=== PATIENT | male | born 1985 | race Caucasian/White ===

== ENCOUNTER 2021-07-31 17:44 | Emergency (ER) | payer MEDICAID ==
--- NOTE | 2021-07-31 19:17 | EDM.PDOC ---
ED HPI GENERAL MEDICAL PROBLEM - General Chief Complaint: Lower Extremity Injury/Pain Stated Complaint: PIECE OF IRON FELL ON LEFT KNEE AND LEG Time Seen by Provider: 07/31/21 18:55 Source of Information: Reports: Patient History Limitations: Reports: No Limitations - History of Present Illness INITIAL COMMENTS - FREE TEXT/NARRATIVE: HISTORY AND PHYSICAL: History of present illness: Patient is a 36-year-old male who presents to the emergency room with complaints of left medial knee pain. He reports while at work a piece of heavy metal had fallen onto his leg resulting in soft tissue swelling and pain with light touch. He is able to bear weight and bend although this does cause increased pain. He denies any other extremity involvement. Did not hit his head or have any loss of consciousness. Patient denies any fever, chills, headache, change in vision, syncope or near syncope. Denies any chest pain, back pain, shortness of breath or cough. Denies any GI or symptoms. Patient has been eating and drinking appropriately. No recent travel or sick contacts. Review of systems: As per history of present illness and below otherwise all systems reviewed and negative. Past medical history: As per history of present illness and as reviewed below otherwise noncontributory. Surgical history: As per history of present illness and as reviewed below otherwise nonc ontributory. Social history: See social history for further information Family history: As per history of present illness and as reviewed below otherwise noncontributory. Physical exam: General: Well developed and well nourished 36 year old male. Alert and orientated x 3. Nontoxic in appearance and in no acute distress. Vital signs are stable and have been reviewed by me. Nursing notes were reviewed. HEENT: Atraumatic, no cervical spine tenderness, normocephalic, pupils equal and reactive bilaterally, negative for conjunctival pallor or scleral icterus, mucous membranes moist, trachea midline. No drooling or trismus noted. No meningeal signs. No hot potato voice noted. Lungs: Clear to auscultation bilaterally. No wheezes, rales, or rhonchi. Chest nontender. Normal work of breathing, no accessory muscles used. Heart: S1S2, regular rate and rhythm without overt murmur, gallops, or rubs. No JVD. No peripheral edema Abdomen: Soft, nondistended, nontender. Skin: Superficial abrasion, soft tissue swelling and redness noted to left medial knee/distal thigh. Remaining skin is intact, warm, dry. No lesions or rashes noted. Hematologic: No petechiae or purpra. Mucosa appropriate color and normal nail bed color and refill. Extremities: Ambulatory with even and steady gait. Pain with palpation of left medial knee with soft tissue swelling (See SKIN). He moves all extremities per self without difficulty or deficits, strong pedal pulses with cap refill less than 2 seconds. Denies numbness or tingling lower extremities. He is negative for cords or calf pain. Neurovascular unremarkable. Neuro: Awake, alert, oriented. Cranial nerves II through XII unremarkable. Cerebellum unremarkable. Motor and sensory unremarkable throughout. Exam nonfocal. Psychiatric: Mood and affect are appropriate. Normal thought process. Answering questions appropriately. Please note that the patient was seen and evaluated during the 2019 SARS-CoV-2 novel coronavirus pandemic period. Community viral transmission is ongoing at time of this encounter and the emergency department is operating under pandemic response procedures. Medical Decision Making: Patient is a 36 year old male who presents to the ED with c/o crush injury of the left knee. He states a piece of heavy metal had fallen onto his knee resulting in pain, soft tissue swelling and superficial abrasion. He does have full range of motion and is able to weight-bear although he is very tender to the medial left knee. We did discuss the limitations of the emergency room and at this time we can do an x-ray, he does express concern of possible ligament injury. X-ray shows anterior soft tissue swelling. Normal alignment. No acute fractures are seen. No large effusion. Junior wrap for compression and crutches were provided with education. I have talked with the patient about today's findings, in addition to providing specific details for plan of care. Reassessment at the time of disposition demonstrates that the patient is in no acute distress. The patient is stable for discharge, counseling was provided and we discussed in great detail signs and symptoms that would prompt them to return to the Emergency Department. Medication, follow up and supportive care measures were reviewed and discussed. Voices understanding and is agreeable to plan of care. Denies any further questions or concerns at this time. Diagnostics: Knee x-ray Therapeutics: Junior wrap and crutches Prescription: Tramadol Impression: Crush injury, left knee Plan: 1. You were evaluated today on an emergent basis. Your x-ray doesn't show any signs of fracture. You could still have a ligament injury. Rest, ice and elevate as able. If you still have significant pain without any improvement, I would like you to follow up with primary care or orthopedics for possible MRI. Until then, use the junior wrap and crutches to be nonweightbearing. 2. You can alternate Tylenol and ibuprofen as needed for pain and fever management. 3. If your symptoms should worsen, new symptoms develop or any of the signs and symptoms we discussed should arise please return to the emergency room or call 911 (if needed). Definitive disposition and diagnosis as appropriate pending reevaluation and review of above. left leg Pain Score (Numeric/FACES): 8 - Related Data Allergies Allergy/AdvReac Type Severity Reaction Status Date / Time No Known Allergies Allergy Verified 07/31/21 18:38 Home Meds: Home Meds . [No Known Home Meds] 07/31/21 [History] Past Medical History - Past Health History Medical/Surgical History: Denies Medical/Surgical History Musculoskeletal History: Reports: Fracture Other Musculoskeletal History: broken ribs, collar bone, foot - Infectious Disease History Infectious Disease History: Reports: Chicken Pox, Influenza Social & Family History - Tobacco Use Tobacco Use Status *Q: Current Every Day Tobacco User Years of Tobacco use: 21 Packs/Tins Daily: 1 - Caffeine Use Caffeine Use: Reports: Coffee, Tea - Alcohol Use Days Per Week of Alcohol Use: 2 Number of Drinks Per Day: 5 Total Drinks Per Week: 10 - Recreational Drug Use Recreational Drug Use: No Review of Systems - Review of Systems Review Of Systems: Comprehensive ROS is negative, except as noted in HPI. ED EXAM, GENERAL - Physical Exam Exam: See Below (See dictation) Course - Vital Signs Last Recorded V/S: Last Vital Signs Temp 97 F 07/31/21 18:33 Pulse 99 07/31/21 18:33 Resp 16 07/31/21 18:33 BP 122/71 07/31/21 18:33 Pulse Ox 99 07/31/21 18:33 Departure - Departure Time of Disposition: 20:07 Disposition: Home, Self-Care 01 Clinical Impression: Crushing injury leg Qualifiers: Encounter type: initial encounter Laterality: left Qualified Code(s): S87.82XA - Crushing injury of left lower leg, initial encounter - Discharge Information Referrals: PCP,None [Primary Care Provider] - Forms: ED Department Discharge Additional Instructions: The following information is given to patients seen in the emergency department who are being discharged to home. This information is to outline your options for follow-up care. We provide all patients seen in our emergency department with a follow-up referral. The need for follow-up, as well as the timing and circumstances, are variable depending upon the specifics of your emergency department visit. If you don't have a primary care physician on staff, we will provide you with a referral. We always advise you to contact your personal physician following an emergency department visit to inform them of the circumstance of the visit and for follow-up with them and/or the need for any referrals to a consulting specialist. The emergency department will also refer you to a specialist when appropriate. This referral assures that you have the opportunity for follow-up care with a specialist. All of these measure are taken in an effort to provide you with optimal care, which includes your follow-up. Under all circumstances we always encourage you to contact your private physician who remains a resource for coordinating your care. When calling for follow-up care, please make the office aware that this follow-up is from your recent emergency room visit. If for any reason you are refused follow-up, please contact the [facility] Emergency Department at and asked to speak to the emergency department charge nurse. [facility] [address] [place] [id number] [facility] [address] [place] [id number] Thank you for choosing the [facility] emergency department in [place] for your medical needs today. It was a pleasure caring for you. Today you were seen in the emergency department for crush injury. 1. You were evaluated today on an emergent basis. Your x-ray doesn't show any signs of fracture. You could still have a ligament injury. Rest, ice and elevate as able. If you still have significant pain without any improvement, I would like you to follow up with primary care or orthopedics for possible MRI. Until then, use the junior wrap and crutches to be nonweightbearing. 2. You can alternate Tylenol and ibuprofen as needed for pain and fever management. 3. If your symptoms should worsen, new symptoms develop or any of the signs and symptoms we discussed should arise please return to the emergency room or call 911 (if needed). Sepsis Event Note (ED) - Evaluation Sepsis Screening Result: No Definite Risk - Focused Exam Vital Signs: Vital Signs Temp Pulse Resp BP Pulse Ox 07/31/21 18:33 97 F 99 16 122/71 99
--- NOTE | 2021-07-31 20:05 | CR ---
Indication: Pain Technique: Four-views the left knee Comparison: No comparison Findings: Anterior soft tissue swelling. Normal alignment. No acute fractures are seen. No large effusion. Impression: No acute fracture Dictated by Chayo Dhillon MD @ 07/31/2021 8:03:45 PM (Electronically Signed)
== END 2021-07-31 20:30 | disposition home or self-care (01) ==
LOC: MW.ED 17:44
DX: S87.02XA Crushing injury of left knee, initial encounter (principal); Z72.0 Tobacco use; W20.8XXA Other cause of strike by thrown, projected or falling object, initial encounter; Y92.89 Other specified places as the place of occurrence of the external cause; Y99.0 Civilian activity done for income or pay
CPT/HCPCS: 73564-26-LT; 73564-LT; 99283-25